=== PATIENT | male | born 1990 | race Caucasian/White ===

== ENCOUNTER 2019-04-13 07:31 | Inpatient (IN) | payer OTHER ==
[~2019-04-13] VITALS: Ht 172.7 cm; Wt 61.2 kg
[2019-04-13] VITALS (23 sets, daily range): BP systolic 80–134; BP diastolic 49–95
--- NOTE | ~2019-04-13 | CON ---
[facility] [address] [place] [address] CONSULTATION Name: DOROTA NATARAJAN Room: [address] ADM IN M.R.#: [id number] Admission: 04/13/19 Attend Phys: Kendell Givens MD Discharge: Date of : 89 Report #: [id number] THIS REPORT FOR: //name// CC: Kendell Givens [facility] physician/PCP DATE OF SERVICE: 04/13/2019 REQUESTING PHYSICIAN: Kendell Givens M.D. REASON FOR CONSULTATION: Hyperkalemia, acute kidney injury. HISTORY OF PRESENT ILLNESS: The patient is a 28-year-old man with a medical history of substance abuse using marijuana and heroin. According to the chart and information apparently was collected from his mother found unresponsive, brought to Emergency Room. He is very lethargic. His potassium is elevated at 6.8. His BUN is 26, creatinine 2.0, it was 2.4 earlier. Today, blood sugar 112, calcium 7.3. Troponin 0.71. Hemoglobin 16.8. His opioid screen was positive. Marijuana, positive. ABG showed pH of 7.26, pCO2 of 44, pO2 of 86. His white count was 34.5 thousand. He has 86% of neutrophils. PAST MEDICAL HISTORY: Positive for heroin abuse. SOCIAL HISTORY: Positive for heroin abuse. FAMILY HISTORY: Not pertinent. MEDICATIONS: Prior to admission include ibuprofen and tramadol. REVIEW OF SYSTEMS: Unobtainable. PHYSICAL EXAMINATION: GENERAL: Lethargic. VITAL SIGNS: Blood pressure 96/50, heart rate 75, temperature 36.7. HEENT: Pupils round. NECK: Supple. LUNGS: Clear. CARDIOVASCULAR: Regular rate. ABDOMEN: Soft. LOWER EXTREMITIES: No edema and overall he is very malnourished. LABORATORY REPORT: As mentioned earlier. MEDICATIONS: Here in the hospital, he was started on Zosyn and given IV fluids. ASSESSMENT: [place] [address] CONSULTATION Name: DOROTA NATARAJAN Room: [address] IN [facility]#: [id number] Admission: 04/13/19 Attend Phys: Kendell Givens MD Discharge: Date of : 89 Report #: [id number] 1. Acute kidney injury, probably volume depletion, probably septic as well, elevated white count. 2. Hyperkalemia. 3. Heroin abuse. PLAN: 1. Hydration. 2. Give him one dose of Lasix for hyperkalemia. 3. Give him albuterol, give him bicarbonate drip, insulin drip, glucose for his hyperkalemia and check his labs. By: [id number] [id number] Alegria MD /PMT
--- NOTE | ~2019-04-13 | OP ---
[address] [address] OPERATIVE REPORT Name: ROSA ISELADOROTAARIANA DUENAS Room: [address] IN M.R.#: [id number] Admission: 04/13/19 Attend Phys: Kendell Givens MD Discharge: Date of : 89 Report #: [id number] THIS REPORT FOR: //name// CC: Kendell Givens [facility] physician/PCP DATE OF SERVICE: 04/16/2019 PROCEDURES PERFORMED: Drainage of abdominal wall hematoma and excision of 10 x 8 cm abdominal wall foreign body capsule. PREPROCEDURE DIAGNOSIS: A 10 x 8 cm abdominal wall mass. POSTPROCEDURE DIAGNOSIS: A 10 x 8 cm foreign body capsule of hematoma. INDICATIONS: The patient is a 28-year-old gentleman, who had a symptomatic right lower quadrant abdominal wall mass where he once had a subcutaneous pain pump reservoir. He understood the indications, benefits, risks, and alternatives to having excision and wished to proceed. FINDINGS: There is a large foreign body capsule containing hematoma fluid and semi-solid necrotic material. The fluid was sent for a Gram stain and culture. The mass and semi-solid foreign material were sent to pathology. PROCEDURE IN DETAIL: After informed consent was obtained from the patient, he was taken to the operating room and placed in the supine position. Preoperative antibiotics were infused and sequential compression devices were applied. General anesthesia was established. The abdomen was prepped and draped in the usual sterile fashion. The horizontal scar was excised with #10 blade and soft tissues dissected with electrocautery. The scar was not sent for pathology, it was discarded. The subcutaneous tissue was incised and a foreign body capsule was entered with hematoma fluid present. The hematoma fluid was suctioned out. It was sent for Gram stain and culture. There was semi-solid foreign body material within the foreign body capsule. The entire foreign body capsule was dissected from the surrounding subcutaneous fat with electrocautery. After it had been completely excised, it was passed off to pathology. The wound was copiously irrigated. A 15-Kazakh closed suction CARLEY drain was brought out through a lateral stab incision and secured to the skin with 3-0 nylon suture. The wound was again copiously irrigated. Local anesthetic had been infiltrated into the skin. The deep dermis was closed with interrupted 3-0 Vicryl suture and the skin was closed with génesis. Sterile bandage was applied. The patient tolerated the procedure without complications and was taken to the recovery area in good condition. COMPLICATIONS: [place] [address] OPERATIVE REPORT Name: DOROTA NATARAJAN Room: [address]#: [id number] Admission: 04/13/19 Attend Phys: Kendell Givens MD Discharge: Date of : 91 Report #: [id number] ESTIMATED BLOOD LOSS: 20 mL. SPECIMEN: 1. Hematoma fluid for Gram stain and culture. 2. Foreign body capsule with necrotic material from within the capsule cavity to pathology. DRAINS: A 15-Kazakh subcutaneous CARLEY drain. By: [id number] Steiner MD /nt
[~2019-04-13 07:31] MED LIST: IBUPROFEN 800800 MG PO; NOHOMEMEDICATIONS; ULTRAM 50MG TAB50 MG PO
[2019-04-13 08:08] LABS: HEMATOCRIT 49.9 % (42.0-52.0); HEMOGLOBIN 16.8 gm/dL (14.0-18.0); MCH 31.7 pg (26.0-34.0); MCHC 33.7 g/dL (28.0-37.0); MCV 94.2 fL (80.0-100.0); MPV 7.2 fl. (7.2-11.1); NUCLEATED RBCS 0 /100WBC; PLATELET COUNT* 297 thou/uL (150-400); RBC 5.29 mil/uL (4.50-6.00); RDW-CV 13.5 % (10.5-14.5); WBC 34.5 thou/uL (4.0-11.0)
[2019-04-13 08:17] LABS: CALCIUM 9.1 mg/dL (8.5-10.1); CREATININE 2.4 mg/dL (0.6-1.3)
[2019-04-13 08:19] LABS: APTT 24.8 Seconds (25.0-31.3); PROTIME 10.7 Seconds (9.20-11.50)
[2019-04-13 08:28] LABS: SALICYLATE 4.4 mg/dL (2.8-20.0)
[2019-04-13 08:30] LABS: ACETAMINOPHEN < 2 ug/mL (10-30); ALBUMIN 4.1 g/dL (3.4-5.0); ALCOHOL < 10 mg/dL (<10); CK-MB MASS 7.8 ng/mL (<0.5-3.6); TOTAL BILIRUBIN 0.3 mg/dL (<0.1-1.0); TOTAL PROTEIN 7.9 g/dL (6.4-8.2); TROPONIN-I LEVEL 0.28 ng/mL (<0.06)
[2019-04-13 09:02] LABS: ABSOLUTE EOSINOPHILS 0.3 thou/uL (0.0-0.7); ABSOLUTE LYMPHOCYTES 2.4 thou/uL (0.8-5.3); ABSOLUTE NEUTROPHILS 30.7 thou/uL (1.6-8.1)
[2019-04-13 09:04] LABS: PLATELET ESTIMATE ADEQUATE
[2019-04-13 09:05] LABS: TOXIC GRANULATION 2+
[2019-04-13 09:57] LABS: AMP/METHAMP Negative (Negative); BARBITURATES Negative (Negative); BENZODIAZEPINES Negative (Negative); COCAINE Negative (Negative); METHADONE Negative (Negative); OPIATES POSITIVE (Negative); PCP Negative (Negative); THC POSITIVE (Negative)
[2019-04-13 10:11] LABS: URINE BILIRUBIN NEGATIVE (Negative); URINE BLOOD 2+ (Negative); URINE CLARITY CLEAR; URINE COLOR YELLOW; URINE GLUCOSE-RANDOM 1+ (Negative); URINE KETONES NEGATIVE (Negative); URINE LEUKOCYTES-REFLEX NEGATIVE (Negative); URINE NITRITE-REFLEX NEGATIVE (Negative); URINE PROTEIN 2+ (Negative); URINE SPECIFIC GRAVITY >= 1.030 (1.005-1.030); URINE UROBILINOGEN 0.2 E.U./dl (0.2-1.0)
[2019-04-13 10:13] LABS: SQUAMOUS NONE SEEN /LPF (0-3)
[2019-04-13 10:14] LABS: URINE RBC 3-10 Few /HPF (0-2); URINE WBC-REFLEX 0-5 Rare /HPF (0-5)
[2019-04-13 10:15] LABS: BACTERIA-REFLEX None Seen /HPF (None Seen)
[2019-04-13 10:16] LABS: CASTS None Seen /LPF (None Seen); MUCUS 4-6 Moderate strn/LPF (None Seen)
[2019-04-13 10:18] LABS: AMORPHOUS URATES Moderate /LPF (None Seen)
[2019-04-13 13:36] LABS: BE -7.5 mmol/L (-2 to +3); PCO2 44.1 mmHg (35.0-45.0); PO2 86.5 mmHg (75.0-100.0)
[2019-04-13 13:38] LABS: pH 7.261 (7.340-7.450)
[2019-04-13 15:37] LABS: CALCIUM 7.3 mg/dL (8.5-10.1)
[2019-04-13 15:38] LABS: POTASSIUM 6.9 mmol/L (3.5-5.1)
--- NOTE | 2019-04-13 15:44 | EKG ---
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
--- NOTE | 2019-04-13 15:49 | EKG ---
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: : 1990 Requested By: Tobi Westfall Order Number: [id number] MD: Yaw Landaverde Measurements Intervals [place] Rate: 93 P: MT: QRS: 60 QRSD: 113 T: 66 QT: 353 QTc: 440 Interpretive Statements Sinus rhythm Borderline intraventricular conduction delay RSR' in V1 or V2, probably normal variant Artifact in lead(s) III,V1,V2,V4,V5,V6 No previous ECG available for comparison Electronically Signed On 04-13-2019 15:42:48 CDT by Yaw Landaverde Electronically Signed On 04-13-2019 15:49:01 CDT by Yaw Landaverde [email or web address] <ELECTRONICALLY SIGNED> By: Yaw Landaverde MD, [facility] 04/13/19 1549 0734 0734 Yaw Landaverde MD, [facility] /EPI
--- NOTE | 2019-04-13 17:07 | 2DMMODE ---
[place] [address] 2 D/M-MODE ECHOCARDIOGRAM Name: NATARAJANDOROTA YULISSA Room: [address] IN [facility]#: [id number] Admission: 04/13/19 Attend Phys: Kendell Givens, Discharge: Date of : 89 Date of Service: 04/13/19 1706 Report #: [id number] THIS REPORT FOR: //name// APPROVED REPORT Study performed: 04/13/2019 15:57:42 EXAM: Comprehensive 2D, Doppler, and color-flow Echocardiogram Patient Location: In-Patient Room #: [facility] Status: routine BSA: 1.71 HR: 74 bpm BP: 96/50 mmHg Rhythm: NSR Other Information Study Quality: Good Indications Elevated Troponin 2D Dimensions IVSd: 10.04 (7-11mm) LVOT Diam: 19.78 (18-24mm) LVDd: 46.65 mm PWd: 8.84 (7-11mm) Ascending Ao: 23.97 (22-36mm) LVDs: 40.24 (25-40mm) Aortic Root: 26.07 mm Volumes Left Atrial Volume (Systole) LA ESV Index: 19.10 mL/m2 Aortic Valve AoV Peak Mark.: 1.07 m/s AO Peak Gr.: 4.59 mmHg LVOT Max P.00 mmHg AO Mean Gr.: 3.27 mmHg LVOT Mean P.56 mmHg LVOT Max V: 0.87 m/s AO V2 VTI: 15.71 cm LVOT Mean V: 0.58 m/s MALCOLM (VTI): 2.60 cm2 LVOT V1 VTI: 13.31 cm Mitral Valve E/A Ratio: 1.57 MV Decel. Time: 112.83 ms MV E Max Mark.: 0.72 m/[place] [address] 2 D/M-MODE ECHOCARDIOGRAM Name: DOROTA NATARAJAN Room: [address] IN .R.#: [id number] Admission: 04/13/19 Attend Phys: Kendell Givens, Discharge: Date of : 89 Date of Service: 04/13/19 1706 Report #: [id number] PHT: 32.72 ms MVA (PHT): 6.72 cm2 TDI E/Lateral E': 3.43 E/Medial E': 5.14 Medial E' Mark.: 0.14 m/s Lateral E' Mark.: 0.21 m/s Pulmonary Valve PV Peak Mark.: 0.74 m/s PV Peak Gr.: 2.17 mmHg Tricuspid Valve RAP Estimate: 5.00 mmHg TR Peak Gr.: 17.97 mmHg RVSP: 23.00 mmHg PA Pressure: 23.00 mmHg Left Ventricle The left ventricle is normal size. There is moderate global hypokinesis of the left ventricle. There is normal left ventricular wall thickness. Left ventricular systolic function is moderate to severely decreased. LVEF is 30-35%. Grade IV - fixed restrictive diastolic dysfunction. Right Ventricle The right ventricle is normal size. The right ventricular systolic function is normal. Atria The left atrium size is normal. The right atrium size is normal. Aortic Valve Aortic valve leaflets are mildly thickened. No aortic regurgitation is present. There is no aortic valvular stenosis. Mitral Valve The mitral valve is normal in structure. Trace mitral regurgitation. No evidence of mitral valve stenosis. Tricuspid Valve The tricuspid valve is normal in structure. Mild tricuspid regurgitation. No pulmonary hypertension. Pulmonic Valve The pulmonary valve is normal in structure. There is no [place]mon[place] [address] 2 D/M-MODE ECHOCARDIOGRAM Name: DOROTA NATARAJAN Room: [address]#: [id number] Admission: 04/13/19 Attend Phys: Kendell Givens, Discharge: Date of : 89 Date of Service: 04/13/19 1706 Report #: [id number] Great Vessels The aortic root is normal in size. IVC is normal in size and collapses >50% with inspiration. Pericardium There is no pericardial effusion. <Conclusion> The left ventricle is normal size. There is normal left ventricular wall thickness. Left ventricular systolic function is moderate to severely decreased. LVEF is 30-35%. Grade IV - fixed restrictive diastolic dysfunction. The right ventricle is normal size. The left atrium size is normal. Aortic valve leaflets are mildly thickened. No aortic regurgitation is present. There is no aortic valvular stenosis. The mitral valve is normal in structure. Trace mitral regurgitation. The tricuspid valve is normal in structure. IVC is normal in size and collapses >50% with inspiration. There is no pericardial effusion. There is moderate global hypokinesis of the left ventricle. <ELECTRONICALLY SIGNED> By: Yaw Landaverde MD, FACC 04/13/191705 05 05 Yaw Landaverde MD, FACC /INF
[2019-04-13 18:39] LABS: BE -2.5 mmol/L (-2 to +3); PCO2 46.4 mmHg (35.0-45.0); pH 7.328 (7.340-7.450)
[2019-04-13 23:00] LABS: POTASSIUM 3.8 mmol/L (3.5-5.1)
[2019-04-14] VITALS (24 sets, daily range): BP systolic 84–108; BP diastolic 35–69
[2019-04-14 04:22] LABS: ABSOLUTE BASOPHILS 0.1 thou/uL (0.0-0.2); ABSOLUTE LYMPHOCYTES 1.9 thou/uL (0.8-5.3); ABSOLUTE MONOCYTES 1.7 thou/uL (0.0-1.2); ABSOLUTE NEUTROPHILS 17.7 thou/uL (1.6-8.1); BASOPHILS 0.3 %; EOSINOPHILS 0.1 %; HEMATOCRIT 40.7 % (42.0-52.0); LYMPHOCYTES 9.1 %; MCHC 34.2 g/dL (28.0-37.0); MCV 90.6 fL (80.0-100.0); MONOCYTES 7.9 %; MPV 7.4 fl. (7.2-11.1); NUCLEATED RBCS 0 /100WBC; POLYS 82.6 %; RBC 4.49 mil/uL (4.50-6.00); RDW-CV 13.2 % (10.5-14.5); WBC 21.4 thou/uL (4.0-11.0)
[2019-04-14 04:56] LABS: HEMOGLOBIN 13.9 gm/dL (14.0-18.0); PLATELET COUNT* 218 thou/uL (150-400)
[2019-04-14 05:03] LABS: CALCIUM 8.2 mg/dL (8.5-10.1); CREATININE 1.9 mg/dL (0.6-1.3); POTASSIUM 3.8 mmol/L (3.5-5.1)
[2019-04-14 05:48] LABS: TROPONIN-I LEVEL 1.27 ng/mL (<0.06)
[2019-04-15] VITALS (15 sets, daily range): BP systolic 85–127; BP diastolic 58–86
[2019-04-15 02:09] LABS: HEPATITIS B SURFACE AG Negative (Negative)
[2019-04-15 04:22] LABS: ABSOLUTE EOSINOPHILS 0.1 thou/uL (0.0-0.7); ABSOLUTE LYMPHOCYTES 2.7 thou/uL (0.8-5.3); ABSOLUTE MONOCYTES 1.1 thou/uL (0.0-1.2); ABSOLUTE NEUTROPHILS 6.3 thou/uL (1.6-8.1); BASOPHILS 0.4 %; EOSINOPHILS 0.8 %; HEMATOCRIT 40.3 % (42.0-52.0); HEMOGLOBIN 13.5 gm/dL (14.0-18.0); LYMPHOCYTES 26.6 %; MCH 30.8 pg (26.0-34.0); MCHC 33.5 g/dL (28.0-37.0); MCV 91.9 fL (80.0-100.0); MONOCYTES 10.8 %; MPV 7.8 fl. (7.2-11.1); NUCLEATED RBCS 0 /100WBC; PLATELET COUNT* 203 thou/uL (150-400); POLYS 61.4 %; RBC 4.38 mil/uL (4.50-6.00); RDW-CV 13.5 % (10.5-14.5); WBC 10.3 thou/uL (4.0-11.0)
[2019-04-15 05:16] LABS: ALBUMIN 2.9 g/dL (3.4-5.0); CALCIUM 8.6 mg/dL (8.5-10.1); CREATININE 1.4 mg/dL (0.6-1.3); POTASSIUM 4.3 mmol/L (3.5-5.1); TOTAL BILIRUBIN 0.6 mg/dL (<0.1-1.0); TOTAL PROTEIN 5.8 g/dL (6.4-8.2)
--- NOTE | 2019-04-15 12:37 | CON ---
[facility] [address] [place] [address] CONSULTATION Name: ROSA ISELADOROTA DUENAS Room: [address] ADM IN M.R.#: [id number] Admission: 04/13/19 Attend Phys: Kendell Givens MD Discharge: Date of : 89 Report #: [id number] THIS REPORT FOR: //name// CC: Kendell Givens [facility] physician/PCP DATE OF SERVICE: 04/13/2019 INFECTIOUS DISEASE CONSULTATION ATTENDING PHYSICIAN: Kendell Givens M.D. REASON FOR EVALUATION: Sepsis, complicated by respiratory insufficiency, possible early pneumonitis. HISTORY OF PRESENT ILLNESS: Chart reviewed, patient examined. This is a 28-year-old man with history of asthma, also apparently illicit substance abuse history as well who was found unresponsive by a roommate, did speak with his mom. She noted had seen him yesterday at a family function. He was feeling normal. She reports history of heroin abuse, although he has been apparently off substances for 1-2 years, he has worked. He does arouse, difficult to ascertain any additional history from him. IMAGING: Chest was otherwise unremarkable. Did have a markedly elevated white count of 34,000. CT abdomen and pelvis did raise question of possible acute cholecystitis. Urinalysis showed 2+ blood, 2+ protein, although no bacteria and minimal pyuria. Empirically started on piperacillin and tazobactam. He is currently on a Ventimask. ALLERGIES: None known. MEDICATIONS: Include Zosyn, p.r.n. analgesics, and antiemetics. PAST MEDICAL HISTORY: Asthma, primarily. SOCIAL HISTORY: History of illicit drug use. No significant ethanol use. FAMILY HISTORY: Noncontributory. REVIEW OF SYSTEMS: Unobtainable. PHYSICAL EXAMINATION: GENERAL: He is barely arousable. He has a Ventimask in place. Complains of pain associated with the Nelson catheter. HEENT: Normocephalic. Extraocular muscles intact. NECK: [place] [address] CONSULTATION Name: DOROTA NATARAJAN Room: [address]#: [id number] Admission: 04/13/19 Attend Phys: Kendell Givens MD Discharge: Date of : 91 Report #: [id number] VITAL SIGNS: Temperature 98, pulse 94, respirations 12, blood pressure 106/71. SKIN: Warm, dry, no rashes. LUNGS: Few scattered coarse breath sounds. HEART: Borderline tachycardic. I do not appreciate murmur. ABDOMEN: Soft, nontender. There are no peritoneal signs. GENITOURINARY: Deferred. RECTAL: Deferred. LABORATORY DATA: Chest x-ray showed no acute process. Electrolytes: Sodium 145, potassium 4.0, chloride 103, bicarbonate is 28, anion gap of 14, BUN and creatinine 24 and 2.4. Glucose of 267. AST of 272, ALT of 230. Total bilirubin of 0.3, albumin 4.1, total protein 7.9. Lactic acid 4.7, repeat was 4.4. Troponin level 0.39. Urine drug screen was positive for opiates and marijuana. CT abdomen and pelvis showed large amount of pericholecystic fluid in the right upper quadrant, highly suggestive of acute cholecystitis, although is no definite calcified gallstones. No free air. ASSESSMENT: Encephalopathy, possible acute cholecystitis cannot exclude drug overdose as well. We will continue empiric therapy, piperacillin and tazobactam will give us reasonable coverage in that, as well as early pneumonitis. Continue hydration and supportive care. Surgery to evaluate possible acute cholecystitis, go ahead and order abdominal ultrasound as well. <ELECTRONICALLY SIGNED> By: Luis Enrique Solis MD 04/15/19 1237 1152 [id number] Solis MD /nt
--- NOTE | 2019-04-15 17:59 | CARDNUC ---
[place] [address] CARDIAC NUCLEAR IMAGING REPORT Name: ROSA ISELADOROTA DUENAS Room: [address] IN [facility] [place] [facility]#: [id number] Admission: 04/13/19 Attend Phys: Kendell Givens, Discharge: Date of : 89 Date of Service: 04/15/19 1759 Report #: [id number] THIS REPORT FOR: //name// APPROVED REPORT Imaging Protocol: Rest Tc-99m/Stress Tc-99m 1 day Study performed: 04/15/2019 10:50:24 Indication: Troponin elevation Patient Location: In-Patient Room #: ICU 1 Stress Tech: Gloria Ordaz Stress Nurse: Apoorva Medina RN NM Tech:BRADLEY Garcia Ht: 6 ft 0 in Wt: 125 lbs BSA: 1.74 m2 BMI: 16.95 Medical History Medical History: COPD, Recreational Drug Use, , Fatigue, No history of CAD, Hypotension, Bradycardia, Elevated Troponins. Medications: Metoprolol, Hydralazine. Allergies: No known drug allergies Cardiac Risk Factors: Current Smoker, FHX of CAD, Recreations Drug Use. Previous Cardiac Procedures: None Pretest Chest Pain Characteristics: No chest pain Exercise History: Indeterminate Physical Disabilities: Lightheaded, Bradycardia. Meds Held (24 hrs): Metoprolol. Resting Data Rest SPECT myocardial perfusion imaging was performed in supine position 30 minutes following the intravenous injection of 10.5 mCi of Tc-99m Sestamibi. Time of rest injection: 0850 Date: 04/15/2019 The images were gated to evaluate regional wall motion and calculate left ventricular ejection fraction. Administration Route: IV Administration Site: Right Arm Pharmacologic Stress Pharmacologic stress test was performed by injecting Regadenoson 0.4 mg IV push over 10-15 seconds immediately followed by the intravenous injection of 30.9 mCi of Tc-99m [place] [address] CARDIAC NUCLEAR IMAGING REPORT Name: DOROTA NATARAJAN Room: [address] IN [facility].#: [id number] Admission: 04/13/19 Attend Phys: Kendell Givens, Discharge: Date of : 89 Date of Service: 04/15/19 1759 Report #: [id number] Time of stress injection: 1110 Date: 04/15/2019 Administration Route: IV Administration Site: Right Arm Gated Stress SPECT was performed 40 minutes after stress injection. The images were gated to evaluate regional wall motion and calculate left ventricular ejection fraction. Prone imaging was performed. Stress Test Details Stress Test: Pharmacologic stress testing performed using 0.4 mg of regadenoson per 5 mL given IV over 10 seconds. Reason for pharmacologic stress test: Weakness/Fatigue, Hypotension.. HR Max Heart Rate (APMHR): 193 bpm Resting HR: 52 bpm Target HR (85% APMHR): 164 bpm Max HR Achieved: 105 bpm % of APMHR: 54 Recovery HR: 91 bpm BP Resting BP: 116/94 mmHg Max BP: 129/94 mmHg Recovery BP: 123/68 mmHg ECG Resting ECG: Sinus Rhythm Stress ECG: Sinus Rhythm ST Change: None Arrhythmia: None Recovery ECG: Sinus Rhythm Recovery ST Change: None Recovery Arrhythmia: None Clinical Reason for Termination: Completed protocol Stress Symptoms: Lightheaded, Abdominal discomfort. Exercise duration: 0 min 00 sec Exercise capacity: 1.00 METs The patient tolerated Lexiscan infusion without significant symptoms. Nurse Comments ICU inpatient presented with recent altered mental status, bradycardia, hypotension and elevated troponins. Patient tolerated sitting Lexiscan well. Recovery unremarkable with PO caffeine, [place] [address] CARDIAC NUCLEAR IMAGING REPORT Name: ROSA ISELADOROTA DUENAS Room: [address]#: [id number] Admission: 04/13/19 Attend Phys: Kendell Givens, Discharge: Date of : 89 Date of Service: 04/15/19 1759 Report #: [id number] effective. Patient escorted via wheelchair by staff to Nuclear Medicine for images. Patient stable with no complaints at that time. Stress ECG Conclusion The baseline 12-lead EKG shows sinus rhythm without significant ST or T wave abnormality. EKGs obtained during and post Lexiscan infusion show sinus rhythm and sinus tachycardia with no significant ST or T wave changes when compared to baseline. There were no significant stress-induced arrhythmias. Study Quality Study: Good Artifact: Mild Diaphragmatic artifact Study Data At rest, the left ventricular ejection fraction was 59%.. Post stress, the left ventricular ejection was 46%.. TID = 1.19. Perfusion Review of the perfusion images shows a moderate size moderate intensity reversible inferior wall defect and a mild intensity moderate size reversible defect in the anterior wall. Wall Motion There was mild global hypokinesis noted. Nuclear Conclusion ECG Findings: negative for ischemia Clinical Findings: negative for ischemia Nuclear Findings: positive for ischemia Exercise Capacity: not assessed Left Ventricular Function: abnormal Risk Study: high Myocardial perfusion images suggest ischemia on the inferior anterior wall. Overall LV systolic function mildly decreased with global hypokinesis. This is a high risk study. <Conclusion> The baseline 12-lead EKG shows sinus rhythm without significant ST or T wave abnormality. EKGs obtained during and post Lexiscan infusion show sinus rhythm and sinus tachycardia with no significant [place] [address] CARDIAC NUCLEAR IMAGING REPORT Name: NATARAJANDOROTAARIANA DUENAS Room: [address] IN [facility]#: [id number] Admission: 04/13/19 Attend Phys: Kendell Givens, Discharge: Date of : 89 Date of Service: 04/15/19 1759 Report #: [id number] wave changes when compared to baseline. There were no significant stress-induced arrhythmias. <ELECTRONICALLY SIGNED> By: Darrick Grace MD, FACC 04/15/191758 58 58 Darrick Grace MD, FACC /INF
[2019-04-16] VITALS: BP 99/54
[2019-04-16 04:00] VITALS: BP 105/60
[2019-04-16 04:11] LABS: ABSOLUTE BASOPHILS 0.1 thou/uL (0.0-0.2); ABSOLUTE EOSINOPHILS 0.1 thou/uL (0.0-0.7); ABSOLUTE LYMPHOCYTES 2.6 thou/uL (0.8-5.3); ABSOLUTE MONOCYTES 0.8 thou/uL (0.0-1.2); ABSOLUTE NEUTROPHILS 5.4 thou/uL (1.6-8.1); BASOPHILS 0.9 %; EOSINOPHILS 1.6 %; HEMATOCRIT 40.1 % (42.0-52.0); HEMOGLOBIN 13.4 gm/dL (14.0-18.0); LYMPHOCYTES 28.8 %; MCH 30.8 pg (26.0-34.0); MCHC 33.5 g/dL (28.0-37.0); MONOCYTES 8.5 %; MPV 7.7 fl. (7.2-11.1); NUCLEATED RBCS 0 /100WBC; PLATELET COUNT* 198 thou/uL (150-400); POLYS 60.2 %; RBC 4.36 mil/uL (4.50-6.00); RDW-CV 13.3 % (10.5-14.5)
[2019-04-16 04:23] LABS: ALBUMIN 2.6 g/dL (3.4-5.0); CALCIUM 8.2 mg/dL (8.5-10.1); CREATININE 1.2 mg/dL (0.6-1.3); POTASSIUM 4.1 mmol/L (3.5-5.1); TOTAL BILIRUBIN 0.4 mg/dL (<0.1-1.0); TOTAL PROTEIN 5.5 g/dL (6.4-8.2)
[2019-04-16 06:31] LABS: CHOLESTEROL 140 mg/dL (<200); HDL CHOLESTEROL 32 mg/dL (>40); LDL CHOLESTEROL 86 mg/dL (<100); TC:HDL 4.4 Ratio (Not establshd); TRIGLYCERIDE 111 mg/dL (<150); VLDL 22 mg/dL (<40)
[2019-04-16 06:55] LABS: SERUM ASSESSMENT Clear
[2019-04-16 08:00] VITALS: BP 108/66
[2019-04-16 12:36] VITALS: BP 115/79
[2019-04-16] MEDS ORDERED: SPIRONOLACTONE25 M1 PO (15:08)
[2019-04-16] MEDS ORDERED: LISINOPRIL2.5 MG PO (15:09)
[2019-04-16 15:10] VITALS: BP 115/79
== END 2019-04-16 17:13 | disposition home or self-care (01) | DRG 871 ==
LOC: M.ERS 07:31 → M.TBA-ER 08:54 → M.ICU 08:54 → M.2W 04-15 19:06
PROVIDERS: Emergency Medicine; Internal Medicine Nephrology; Registered Nurse; Surgery; ADMIT Internal Medicine
PROC: 0JB83ZZ Excision of Abdomen Subcutaneous Tissue and Fascia, Percutaneous Approach (ICD-10-PCS; principal; 2019-04-16)
PROC: 0W9F3ZZ Drainage of Abdominal Wall, Percutaneous Approach (ICD-10-PCS; principal; 2019-04-16)
DX: A41.9 Sepsis, unspecified organism (principal); N17.0 Acute kidney failure with tubular necrosis; G93.41 Metabolic encephalopathy; I21.4 Non-ST elevation (NSTEMI) myocardial infarction; K81.0 Acute cholecystitis; I50.22 Chronic systolic (congestive) heart failure; J45.909 Unspecified asthma, uncomplicated; F12.90 Cannabis use, unspecified, uncomplicated; E86.0 Dehydration; F19.10 Other psychoactive substance abuse, uncomplicated; E87.5 Hyperkalemia; R19.00 Intra-abdominal and pelvic swelling, mass and lump, unspecified site; K75.9 Inflammatory liver disease, unspecified; Z79.899 Other long term (current) drug therapy

== ENCOUNTER → 2019-07-02 | Outpatient (CLI) | payer OTHER ==
[~2019-07-02] VITALS: Ht 182.9 cm; Wt 56.7 kg
[~2019-07-02] MED LIST changes: +LISINOPRIL2.5 MG PO; +SPIRONOLACTONE25 M1 PO
[2019-07-02 11:19] VITALS: BP 96/57
[2019-07-02 11:51] LABS: HEMATOCRIT 44.3 % (42.0-52.0); HEMOGLOBIN 15.5 gm/dL (14.0-18.0); MCH 32.1 pg (26.0-34.0); MCV 91.8 fL (80.0-100.0); MPV 7.5 fl. (7.2-11.1); RBC 4.83 mil/uL (4.50-6.00); RDW-CV 13.7 % (10.5-14.5); WBC 7.8 thou/uL (4.0-11.0)
[2019-07-02 11:59] LABS: APTT 27.2 Seconds (25.0-31.3); PROTIME 10.5 Seconds (9.20-11.50)
[2019-07-02 12:23] LABS: ANION GAP 8 mmol/L (7-16); BUN 22 mg/dL (7-18); CALCIUM 9.4 mg/dL (8.5-10.1); CHLORIDE 104 mmol/L (98-107); CO2 26 mmol/L (21-32); CREATININE 1.3 mg/dL (0.6-1.3); GLUCOSE 101 mg/dL (70-99); SODIUM 138 mmol/L (136-145)
[2019-07-02 12:28] LABS: CHOLESTEROL 189 mg/dL (<200); HDL CHOLESTEROL 52 mg/dL (>40); LDL CHOLESTEROL 129 mg/dL (<100); TC:HDL 3.6 Ratio (Not establshd); TRIGLYCERIDE 44 mg/dL (<150); VLDL 9 mg/dL (<40)
[2019-07-02 12:32] LABS: SERUM ASSESSMENT Clear
[2019-07-02 14:20] VITALS: BP 90/54
[2019-07-02 14:46] VITALS: BP 109/67
[2019-07-02 14:59] VITALS: BP 110/60
[2019-07-02 15:16] VITALS: BP 96/66
--- NOTE | 2019-07-03 11:11 | EKG ---
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
--- NOTE | 2019-07-04 13:15 | CARD ---
[address] [address] CARDIAC CATH REPORT Name: DOROTA NATARAJAN Room: [facility].#: [id number] Admission: 07/02/19 Attend Phys: Darrick Grace MD Discharge: Date of : 89 Report #: [id number] THIS REPORT FOR: //name// APPROVED REPORT Study performed: 07/02/2019 13:14:50 Patient Details Patient Status: Out-Patient Room #: The patient is a 29 year-old male Event Personnel Darrick Grace Waste Machine Operator, Opal Nguyễn RN Post Acute Care Registered Nurse, Flynn Larson (R) Monitor, Yamilet Pandey RTR Scrub, Hector Whitfield YIELD CLERK Scrub Procedures Performed Left Heart Cath w/or w/o Coronaries Procedure Narrative A Slender Glidesheath sheath was inserted into the right radial artery. Coronary angiography was performed using coronary diagnostic catheters. The right coronary system was accessed and visualized with a Diagnostic 3DRC 5fr catheter. The left coronary system was accessed and visualized with a Diagnostic DCR: Daggett 4.0 5fr catheter. The left ventricle was accessed and visualized with a Diagnostic PC: Angled Pig 5fr catheter. Left ventricular/Aortic Valve gradient assessed via catheter pullback. The patient tolerated the procedure well and there were no complications associated with the procedure. Intraoperative Conscious Sedation No Sedation Given Fluoro Time: 5.9 minutes Dose: DAP 21309 cGycm2 525 mGy Contrast Type and Amount: Visipaque 100 ml Diagnostic Cath Left Main Separate ostia for the LAD and circumflex coronary arteries. LAD Normal in the proximal mid and distal portion. Diagonal 1 Normal. Diagonal 2 Normal. Circumflex Normal in the proximal mid and distal portion. OM1 Large [place] [address] CARDIAC CATH REPORT Name: ROSA ISELADOROTAARIANA KISER Room: [facility]#: [id number] Admission: 07/02/19 Attend Phys: Darrick Grace MD Discharge: Date of : 89 Report #: [id number] OM2 Small and normal. Right Coronary Normally in the proximal mid and distal portion. R PDA Normal. Left Ventriculography The left ventricle is normal in size with normal contractility. The left ventricular ejection fraction is estimated to be 60%. Hemodynamics The aortic pressure is 84/51 mmHg with a mean of 64 mmHg. The left ventricular pressure is 88/1 mmHg with a mean of mmHg. The left ventricular end diastolic pressure is 5 mmHg. Conclusion 1. Normal coronary arteries. 2. Separate ostia for the LAD and circumflex coronary arteries. 3. Normal left ventricular systolic function. 4. Normal left ventricular end-diastolic pressure. Recommendations 1. Continue current medical management. <ELECTRONICALLY SIGNED> By: Darrick Grace MD, [facility] 07/04/19 1315 1315 [id number] Grace MD, [facility]
== END | disposition home or self-care (01) ==
LOC: M.CL 11:06
PROVIDERS: Internal Medicine Cardiovascular Disease
DX: I42.9 Cardiomyopathy, unspecified (principal); J45.909 Unspecified asthma, uncomplicated; F17.210 Nicotine dependence, cigarettes, uncomplicated; Z79.82 Long term (current) use of aspirin; Z79.899 Other long term (current) drug therapy; Z98.890 Other specified postprocedural states; Z79.01 Long term (current) use of anticoagulants